=== PATIENT | male | born 1935 | race Asian ===

== ENCOUNTER 2018-12-30 18:18 | Emergency (ER) | payer OTHER ==
[~2018-12-30] VITALS: Ht 177.8 cm; Wt 64.9 kg
[2018-12-30 18:29] VITALS: Ht 177.8 cm; Wt 64.9 kg
[2018-12-30 19:58] VITALS: BP 150/69
== END 2018-12-30 19:58 | disposition home or self-care (01) ==
LOC: ED 18:18
DX: R10.30 Lower abdominal pain, unspecified (principal); E11.9 Type 2 diabetes mellitus without complications